=== PATIENT | male | born 1990 | race Caucasian/White ===

== ENCOUNTER 2019-12-19 23:57 | Emergency (ER) | payer MEDICAID, SELFPAY ==
[2019-12-19 23:57] VITALS: BP 179/114; PULSE 125; RESP 18; TEMP 37; O2SAT 96
[2019-12-19 23:58] VITALS: BP 179/114; PULSE 126; RESP 18; TEMP 37; O2SAT 97; BMI 21.8
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
[2019-12-20] MEDS: HYDROmorphone 1 MG/ML Syringe IV ×2 (00:13→00:52)
[2019-12-20] MEDS: Lactated Ringers 1,000 ML 999 ML IV ×2 (00:14→00:18)
[2019-12-20 00:27] LABS: Absolute Lymphocyte Count 5.94 X10^3/uL (0.83-4.51); Absolute Neutrophil Count 4.4 X10^3/uL (2.0-7.7); Basophil# 0.14 X10^3/uL; Basophil% 1.2 % (0-1); Eosinophil# 0.25 X10^3/uL; Eosinophils% 2.1 % (0-5); Hematocrit 45.2 % (40-54); Hemoglobin 14.2 g/dL (13.0-16.5); Lymphocyte # 5.94 X10^3/ul (4.0); Lymphocyte % 49.8 % (19-41); Mean Corp Hgb Conc 31.4 g/dL (32-36); Mean Corpuscular Hgb 29.5 pg (27.0-32.0); Mean Platelet Vol. 9.5 fl (6.2-12.0); Monocyte# 1.12 X10^3/uL; Monocyte% 9.4 % (0-10); NRBC Flagged by Analyzer 0 % (0-5); Neutrophil # 4.43 X10^3/uL (2.7-7.7); Neutrophil % 37.1 % (47-70); POSITIVE DIFFERENTIAL YES; POSITIVE MORPHOLOGY YES; Platelet Count 501 K/mm3 (150-450); RBC Distribution Width CV 13.9 % (11.6-14.6); RBC Distribution Width SD 47.8 fl (35.1-43.9); Red Blood Count 4.81 M/mm3 (4.6-6.2); White Blood Count 11.9 K/mm3 (4.4-11.0)
[2019-12-20 00:28] LABS: Differential Indicated SCAN CRITERIA MET
[2019-12-20 00:47] LABS: ALB/GLOB Ratio 0.6 RATIO (0.9-2.4); AST(SGOT) 76 U/L (15-37); Alanine Aminotransfer ALT/SGPT 260 U/L (16-61); Albumin, Serum 3.1 g/dL (3.2-5.0); Alkaline Phosphatase 198 U/L (45-117); Anion Gap 11 (5-15); BUN 14 mg/dL (7-18); BUN/Creat Ratio 11.3 RATIO (10-20); Calcium,Total 8.9 mg/dL (8.5-10.1); Chloride 106 mmol/L (98-107); Creatinine, Serum 1.24 mg/dL (0.70-1.30); EST Glomerular Filtration Rate 72 mL/min (>60); Est Glom Filt Rate - Afr Amer 88 mL/min (>60); Estimated Creatinine Clearance 85.01 ml/min; Globulin 5.1 g/dL (2.2-4.2); Glucose 89 mg/dL (74-106); Potassium 3.7 mmol/L (3.5-5.1); Protein, Total 8.2 g/dL (6.4-8.2); Sodium Level 143 mmol/L (136-145)
[2019-12-20 00:48] LABS: Atypical Lymphocyte 1+ %; Differential Comment SCANNED; Reactive Lymphocyte 1+
[2019-12-20 00:49] LABS: Alcohol, Blood (Medical)-Serum < 3.0 mg/dL
[2019-12-20 00:57] VITALS: BP 170/120; PULSE 109; RESP 18; O2SAT 95
[2019-12-20] MEDS: Morphine 4 MG/ML Syringe IV (01:26)
[2019-12-20 01:27] VITALS: BP 165/118; RESP 16; O2SAT 97
== END 2019-12-20 01:30 | disposition designated cancer center or children's hospital (05) ==
LOC: ED 12-20 01:17
PROVIDERS: Emergency Provider Emergency Medicine; PCP Family Medicine
DX: T21.21XA Burn of second degree of chest wall, initial encounter (principal); T21.22XA Burn of second degree of abdominal wall, initial encounter; T20.27XA Burn of second degree of neck, initial encounter; T21.24XA Burn of second degree of lower back, initial encounter; T23.161A Burn of first degree of back of right hand, initial encounter; T31.30 Burns involving 30-39% of body surface with 0% to 9% third degree burns; J45.909 Unspecified asthma, uncomplicated; F32.9 Major depressive disorder, single episode, unspecified; Z72.0 Tobacco use; Z79.899 Other long term (current) drug therapy
CPT/HCPCS: 80053; 80320; 85025; 96361; 96374; 96375; 96376; 99285; J7030; J7120; A4216; G0480